=== PATIENT | female | born 1980 | race Two or more races ===

== ENCOUNTER → 2018-10-03 | Outpatient (CLI) | payer OTHER | END | disposition home or self-care (01) | LOC: SONOGRAMA 08:36 | DX: E04.2 Nontoxic multinodular goiter (principal) ==

== ENCOUNTER 2019-03-20 10:58 | Outpatient (CLI) | payer OTHER | END 2019-03-20 11:04 | disposition home or self-care (01) | LOC: SONOGRAMA 10:58 | DX: E04.2 Nontoxic multinodular goiter (principal) ==